=== PATIENT | male | born 1990 | race Caucasian/White ===

== ENCOUNTER 2021-05-01 03:37 | Emergency (ER) | payer OTHER ==
[2021-05-01 03:43] VITALS: TEMP 97.3
--- NOTE | 2021-05-01 03:59 | ED ---
Neck Injury/Pain HPI - General Chief Complaint: Neck Pain/Injury Stated Complaint: Back Pain Time Seen by Provider: 05/01/21 03:43 Mode of arrival: EMS Limitations: no limitations - History of Present Illness Initial Comments: This patient is a 30-year-old man who presents for evaluation of neck and upper back pain. He states he has been having episodes of this that he recalls dating back to the time he was an 7-year-old. Patient states that pain will flare in and go away over number days to weeks. He did not have any acute injury with this episode. He indicates the right paraspinal and right trapezius muscles as well as over the rhomboid muscles of the back. Pain is worse with position or movement. He is not having any weakness or numbness. MD Complaint: neck pain -: days(s) Place: home Radiation: right lateral, right shoulder Severity: moderate Quality: burning, aching Consistency: constant Improves With: none Worsens With: movement of neck Associated Symptoms: none Treatments Prior to Arrival: none - Related Data Previous Rx's Medication Instructions Recorded Ibuprofen [Motrin] 600 mg PO Q8HR PRN #20 tab 05/01/21 Methocarbamol [Robaxin-750] 750 mg PO TID PRN #30 tablet 05/01/21 Allergies Allergy/AdvReac Type Severity Reaction Status Date / Time No Known Allergies Allergy Verified 05/01/21 04:07 Review of Systems ROS Statement: Those systems with pertinent positive or pertinent negative responses have been documented in the HPI. ROS Other: All systems not noted in ROS Statement are negative. Constitutional: Denies: fever, chills, weakness Respiratory: Denies: cough, dyspnea Cardiovascular: Denies: chest pain Gastrointestinal: Denies: abdominal pain, vomiting, diarrhea Musculoskeletal: Reports: as per HPI Skin: Denies: rash, lesions Neurological: Denies: headache, weakness, numbness, paresthesias General Exam Limitations: no limitations General appearance: alert, in no apparent distress Head exam: Present: atraumatic, normocephalic Eye exam: Present: normal appearance. Absent: scleral icterus, conjunctival injection Neck exam: Present: normal inspection, tenderness (Right paraspinal muscles), full ROM. Absent: meningismus Respiratory exam: Present: normal lung sounds bilaterally. Absent: respiratory distress, wheezes, rales, rhonchi, stridor Cardiovascular Exam: Present: regular rate, normal rhythm, normal heart sounds. Absent: systolic murmur, diastolic murmur, rubs, gallop Back exam: Present: muscle spasm, paraspinal tenderness (Right), other (Right trapezius tenderness). Absent: vertebral tenderness Neurological exam: Present: alert. Absent: motor sensory deficit Skin exam: Present: warm, dry, intact, normal color. Absent: rash Course Vital Signs 05/01/21 05/01/21 03:39 04:47 Temperature 97.3 F L Pulse Rate 94 88 Respiratory 22 16 Rate Blood Pressure 124/86 121/81 O2 Sat by Pulse 98 98 Oximetry Disposition Clinical Impression: Acute torticollis Disposition: HOME SELF-CARE Condition: Good Instructions (If sedation given, give patient instructions): Cervical Strain (ED) Prescriptions: Ibuprofen [Motrin] 600 mg PO Q8HR PRN #20 tab PRN Reason: Pain Methocarbamol [Robaxin-750] 750 mg PO TID PRN #30 tablet PRN Reason: pain Is patient prescribed a controlled substance at d/c from ED?: No Referrals: None,Stated [Primary Care Provider] - 1-2 days
[2021-05-01] MEDS ORDERED: IBUPROFEN 600 MG TAB PO STA (04:07)
[2021-05-01 04:48] VITALS: BP 121/81; PULSE 88; RESP 16
== END 2021-05-01 04:47 | disposition home or self-care (01) ==
LOC: EC 03:37
DX: M43.6 Torticollis (principal)
CPT/HCPCS: 99283

== ENCOUNTER 2021-10-21 00:04 | Inpatient (IN) | payer MEDICAID, OTHER ==
--- NOTE | 2021-10-21 01:35 | ED ---
Psych HPI - General Source: patient, EMS, RN notes reviewed Mode of arrival: EMS Limitations: no limitations <Sanchez Laurent - Last Filed: 10/21/21 01:33> <Sanjiv Kimble - Last Filed: 10/21/21 08:25> - General Chief Complaint: Psychiatric Symptoms Stated Complaint: Mental health Time Seen by Provider: 10/21/21 00:13 - History of Present Illness Initial Comments: 30-year-old male presents emergency department for psychiatric evaluation. Patient states that he is depressed, suicidal. Patient is currently intoxic ated. Patient states he does drink on Regular basis. Patient has a history of drug abuse but states she has not used a 1 year. Patient has no specific physical complaints. Patient states she's been having suicidal ideation for a while having thoughts of shooting himself. (Sanchez Laurent) - Related Data Home Medications Medication Instructions Recorded Confirmed No Known Home Medications 10/21/21 10/21/21 Allergies Allergy/AdvReac Type Severity Reaction Status Date / Time No Known Allergies Allergy Verified 10/21/21 07:11 Review of Systems ROS Other: All systems not noted in ROS Statement are negative. <Sanchez Laurent - Last Filed: 10/21/21 01:33> ROS Other: All systems not noted in ROS Statement are negative. <Sanjiv Kimble - Last Filed: 10/21/21 08:25> ROS Statement: Those systems with pertinent positive or pertinent negative responses have been documented in the HPI. Past Medical History Past Medical History: No Reported History History of Any Multi-Drug Resistant Organisms: None Reported Past Surgical History: No Surgical Hx Reported Past Psychological History: ADD/ADHD, Anxiety, Bipolar, Depression Smoking Status: Current every day smoker Past Alcohol Use History: Daily Past Drug Use History: Cocaine, Heroin, Methamphetamine <Sanchez Laurent - Last Filed: 10/21/21 01:33> General Exam Limitations: no limitations General appearance: alert, in no apparent distress Head exam: Present: atraumatic, normocephalic, normal inspection Eye exam: Present: normal appearance, PERRL, EOMI. Absent: scleral icterus, conjunctival injection, periorbital swelling ENT exam: Present: normal exam, normal oropharynx, mucous membranes moist Neck exam: Present: normal inspection. Absent: tenderness, meningismus, lymphadenopathy Respiratory exam: Present: normal lung sounds bilaterally. Absent: respiratory distress, wheezes, rales, rhonchi, stridor Cardiovascular Exam: Present: regular rate, normal rhythm, normal heart sounds. Absent: systolic murmur, diastolic murmur, rubs, gallop, clicks Neurological exam: Present: alert, oriented X3 Psychiatric exam: Present: depressed Skin exam: Present: warm, dry, intact, normal color. Absent: rash <Sanchez Laurent - Last Filed: 10/21/21 01:33> Course Vital Signs 10/21/21 10/21/21 00:06 06:37 Temperature 98.2 F Pulse Rate 98 78 Respiratory 18 18 Rate Blood Pressure 135/90 108/69 O2 Sat by Pulse 98 98 Oximetry Medical Decision Making <Sanjiv Kimble - Last Filed: 10/21/21 08:25> - Medical Decision Making The patient was evaluated by the psychiatric service and will be admitted for inpatient evaluation and treatment (Sanjiv Kimble) - Lab Data Lab Results 10/21/21 Range/Units 00:56 Urine Opiates Screen Not Detected (NotDetected) Ur Oxycodone Screen Not Detected (NotDetected) Urine Methadone Screen Not Detected (NotDetected) Ur Propoxyphene Screen Not Detected (NotDetected) Ur Barbiturates Screen Not Detected (NotDetected) U Tricyclic Antidepress Not Detected (NotDetected) Ur Phencyclidine Scrn Not Detected (NotDetected) Ur Amphetamines Screen Not Detected (NotDetected) U Methamphetamines Scrn Not Detected (NotDetected) U Benzodiazepines Scrn Not Detected (NotDetected) Urine Cocaine Screen Not Detected (NotDetected) U Marijuana (THC) Screen Detected H (NotDetected) Disposition <Sanchez Laurent - Last Filed: 10/21/21 01:33> <Sanjiv Kimble - Last Filed: 10/21/21 08:25> Clinical Impression: Depression, Alcohol abuse Disposition: TRANSFER TO PSYCH HOSP/UNIT Condition: Fair Referrals: None,Stated [Primary Care Provider] - 1-2 days
[2021-10-21 02:30] LABS: Amphetamine Screen,Urine Not Detected (NotDetected); Barbiturate Screen,Urine Not Detected (NotDetected); Benzodiazepines Screen,Urine Not Detected (NotDetected); Cocaine Screen,Urine Not Detected (NotDetected); Methadone Screen, Urine Not Detected (NotDetected); Opiate Screen,Urine Not Detected (NotDetected); Oxycodone Screen, Urine Not Detected (NotDetected); Phencyclidine Screen,Urine Not Detected (NotDetected); Tricyclic Antidepressant,Urine Not Detected (NotDetected)
[2021-10-21 02:31] LABS: Urn Cannabinoid Scrn Detected (NotDetected)
[2021-10-21] MEDS ORDERED: LORazepam 1 MG TAB PO STA (08:24)
[2021-10-21] MEDS ORDERED: MAGNESIUM HYDROXIDE 2,400 MG/10 ML CUP PO PRN (10:57)
[2021-10-21] MEDS ORDERED: LORazepam 1 MG TAB PO PRN (10:57)
[2021-10-21] MEDS ORDERED: HALOPERIDOL LACTATE 5 MG/ML 1 ML VIAL IM PRN (11:02)
[2021-10-21] MEDS ORDERED: LORazepam 2 MG/ML INJ IM PRN (11:02)
[2021-10-21 12:53] LABS: Appearance,Urine Clear (Clear); Bilirubin,Urine Negative (Negative); Blood,Urine Negative (Negative); Color,Urine Light Yellow; Glucose,Urine (UA) Negative (Negative); Ketones,Urine Negative (Negative); Leukocyte Esterase,Urine Negative (Negative); Nitrite,Urine Negative (Negative); PH, Urine 5.5 (5.0-8.0); Protein,Urine Negative (Negative); Specific Gravity,Urine 1.005 (1.001-1.035); Urobilinogen,Urine <2.0 mg/dL (<2.0)
[2021-10-21] MEDS: ACETAMINOPHEN TAB 325 MG TAB PO PRN (13:07)
--- NOTE | 2021-10-21 13:53 | P.MDCNMH ---
History of Present Illness Chief Complaint: Depression This is a very pleasant 30-year-old male with history of depression, alcoholism, polysubstance abuse who was voluntarily admitted to mental stroke unit for stabilization of worsening depression and suicidal ideation Patient denies any active medical problems like asthma, diabetes, hypertension, cardiac or renal problems. She denies taking any medications at home. Patient reports drinking about 1/5 to half a gallon of this daily. Last drink was on the day of admission. He was admitted intoxicated with alcohol level is not obtained on admission. He is also admitting to smoking marijuana his urine drug screen was positive for marijuana. Patient states that he has history of severe alcohol withdrawal necessitating intensive care unit in the past. Patient states that he has history of alcoholic seizures none in the last few years. He is now feeling that he is likely but per him is tolerable. Patient has been treated with [facility] protocol with Librium. Review of Systems All systems: negative Past Medical History Past Medical History: No Reported History History of Any Multi-Drug Resistant Organisms: None Reported Past Surgical History: No Surgical Hx Reported Smoking Status: Current every day smoker Medications and Allergies Home Medications Medication Instructions Recorded Confirmed Type No Known Home Medications 10/21/21 10/21/21 History Allergies Allergy/AdvReac Type Severity Reaction Status Date / Time No Known Allergies Allergy Verified 10/21/21 07:11 Physical Exam Vitals: Vital Signs Temp Pulse Pulse Resp BP BP Pulse Ox 10/21/21 12:45 98.5 F 71 18 105/72 10/21/21 06:37 78 18 108/69 98 10/21/21 00:06 98.2 F 98 18 135/90 98 Intake and Output 10/20/21 10/21/21 10/21/21 22:59 06:59 14:59 Other: Weight 63.503 kg 69.4 kg Awake alert oriented 3 Head and neck: no facial asymmetry no neck masses no JVD, oropharyngeal mucosa is clear Lungs clear to auscultation Cardiovascular regular rhythm and rate S1-S2 Abdomen: Bowel sounds present soft nontender nondistended no flank tenderness Extremities no peripheral edema no swelling no cyanosis Neurological: Cranial nerves intact, no focal deficits no asterixis no tremor Cranial Nerve Examination - Cranial Nerves Cranial Nerve I- Olfactory: Intact Cranial Nerve II- Optic: Intact Cranial Nerve III- Oculomotor: Intact Cranial Nerve IV- Trochlear: Intact Cranial Nerve V- Trigeminal: Intact Cranial Nerve - Abducens: Intact Cranial Nerve VII- Facial: Intact Cranial Nerve VIII- Auditory: Intact Cranial Nerve IX- Glossopharyngeal: Intact Cranial Nerve X- Vagus: Intact Cranial Nerve XI- Accessory: Intact Cranial Nerve XII- Hypoglossal: Intact Results Labs: Abnormal Lab Results - Last 24 Hours (Table) 10/21/21 Range/Units 00:56 U Marijuana (THC) Screen Detected H (NotDetected) Assessment and Plan Plan: #Depression Presenting with worsening depression and suicidal ideation Currently mental health unit hospitalization Continue per psychiatry recommendations #Chronic alcoholism Drinks a fifth to half a gallon of whiskey daily Last drink on the admission Monitor for withdrawal's, CIWA protocol started by psychiatry Multivitamin, thiamine, folic acid Encourage oral hydration Check CMP #Cannabis abuse We'll continue to monitor this patient. He does have potential for several withdrawals. Plan of care discussed with nursing.
--- NOTE | 2021-10-21 14:22 | P.HP ---
Psychiatric H&P - . H&P Date: 10/21/21 History & Physical: Allergies Allergy/AdvReac Type Severity Reaction Status Date / Time No Known Allergies Allergy Verified 10/21/21 07:11 Vital Signs Temp 98.2 F 10/21/21 00:06 Pulse 78 10/21/21 06:37 Resp 18 10/21/21 06:37 BP 108/69 10/21/21 06:37 Pulse Ox 98 10/21/21 06:37 Intake & Output 10/20/21 10/21/21 10/21/21 18:59 06:59 18:59 Weight 63.503 kg Laboratory Last Values Urine Opiates Screen Not Detected (NotDetected) 10/21/21 00:56 Ur Oxycodone Screen Not Detected (NotDetected) 10/21/21 00:56 Urine Methadone Screen Not Detected (NotDetected) 10/21/21 00:56 Ur Propoxyphene Screen Not Detected (NotDetected) 10/21/21 00:56 Ur Barbiturates Screen Not Detected (NotDetected) 10/21/21 00:56 U Tricyclic Antidepress Not Detected (NotDetected) 10/21/21 00:56 Ur Phencyclidine Scrn Not Detected (NotDetected) 10/21/21 00:56 Ur Amphetamines Screen Not Detected (NotDetected) 10/21/21 00:56 U Methamphetamines Scrn Not Detected (NotDetected) 10/21/21 00:56 U Benzodiazepines Scrn Not Detected (NotDetected) 10/21/21 00:56 Urine Cocaine Screen Not Detected (NotDetected) 10/21/21 00:56 U Marijuana (THC) Screen Detected (NotDetected) H 10/21/21 00:56 Coronavirus (PCR) Not Detected (Not Detectd) 10/21/21 09:15 10/21/21 12:41 IDENTIFYING DATA: Patient is a 30 yo male, has 2 kids, currently lives [place] with a friend, is single, 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 HPI: Patient presented to the hospital this morning and according to ER reports she was complaining of depression and suicidal thoughts. Patient was apparently intoxicated from etoh. He had a plan to apparently shoot himself with a gun. He claims that he has been drinking heavily recently. He stated that he has been sober from other drug use in the past for about 1 year now. His UDS is positive for THC. Patient was seen today by medical writer and agreeable to speak in the office. Patient appeared to have a long villatoro, appeared to be unkempt. He had a constricted affect was fairly guarded during conversation poor eye contact. He had a soft tone of voice. He claims that he came to the hospital because he was having suicidal thoughts which were increasing in nature. He had thoughts of possibly shooting himself. He claims that he has been having these thoughts for the past 10 years however they have increased recently and claims that a big trigger for him was that he had to sign away his rights to his children. He states that his children are currently living with his mother. He claims that he has been feeling depressed and anxious about it. He claims that he's been drinking heavily approximately a half to 1 pint of whiskey a day. He claims that he does have a history of complicated withdrawals in the past. He states that he is having some tremors at this time and upset stomach. He states that his sleep has been poor for the past few nights sleeping approximately 4 hours a night. He states that his appetite has been up and down. He is denying any access to guns or weapons at this time.. Patient denies any suicidal or homicidal ideations intent or plan. At this time patient denies any auditory or visual hallucinations. Patient denies any flight of ideas racing thoughts and increased in goal directed behavior. Patient admits to using cigarettes daily, alcohol daily as noted above. He smokes marijuana daily. He denies any other recreational drug use. PAST PSYCHIATRIC HISTORY: Patient states that he has a history of depression and anxiety along with polysubstance abuse. He claims that he has been on several different medications in the past including trazodone and Remeron however cannot remember she states that he was previously hospitalized at [place] [facility] several years ago. Patient denies any psychiatric outpatient follow-up. He claims that he has had several suicide attempts in the past including attempting to hang himself and overdosing multiple times. PMH:denies ALLERGIES: as per EMR CHEMICAL DEPENDENCY HISTORY: as per HPI FAMILY PSYCHIATRIC/SUBSTANCE USE HISTORY: States that his brother and father both have some form of mental illness. SOCIAL HISTORY: Patient was born and raised in [place]. Patient claims that she was raised by his mother however was in foster care along with his siblings for 2 years and then returned back to his mother. He claims that he completed up to the 10th grade in school. He states that he has been arrested and in [facility] several times in the past including charges for a OWI, resisting arrest, trespassing. 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 He currently lives in a trailer with his friend. MENTAL STATUS EXAM: General Appearance: Patient appears to be thin, unkempt with a long villatoro, stated age is alert, directable, and attempts to cooperate. Patient appears to have poor hygiene and grooming. Behavior: Patient is seated without any agitated behavior. gaurded, constricted. Speech: Patient's speech is fluent and nonpressured. soft tone. concrete Mood/Affect: Patient reports their mood is depressed and anxious, affect is congruent and constricted. Suicidality/Homicidality: Patient denies having any homicidal ideation intent or plan. Denies any suicidal ideations intent or plan Perceptions: Patient denies any visual hallucinations and denies any auditory hallucinations Though content/process: poverty of content, gaurded, logical. Memory and concentration: AOX3, grossly intact for the purposes of this session. Can spell "WORLD" backwards Judgment and insight: poor STRENGTHS/WEAKNESSES: strength is that patient is resilient. Weakness is that patient has poor judgment and is impulsive INTELLECT: average IMPRESSIONS: Major depressive disorder, severe, recurrent without psychotic features Alcohol use disorder, currently in withdrawal nicotine dependence cannabis use disorder PLAN: -Patient is admitted under voluntary status to MHU for stabilization of psychiatric symptoms and safety. Patient has signed adult voluntary form and medication consent and is placed in patient's chart. -Medications : Will start patient on Librium 20 mg 4 times a day for alcohol withdrawal. Naltrexone 50 mg by mouth daily for alcohol cravings. Zoloft 25 mg daily for anxiety/mood. Remeron 15 mg daily at bedtime for insomnia/appetite/mood. -Ativan and Haldol PRN for agitation/aggression -Started thiamine, MVM for etoh use -WA protocol with Ativan PRN for ETOH withdrawal -Patient was counselled on substance abuse and desired to cut back on use -Patient was informed of the risks, benefits and side effects of the medication and patient verbally consented to taking the medications. Patient signed med consent form and was placed in chart. -Internal Medicine consult to perform medical evaluation and physical. -NRT - nicotine patch -SW on board for discharge planning. Encourage patient to participate in groups to work on coping skills. will speak with patient about possibly going to rehab. 10/21/21 14:12
[2021-10-21] MEDS: NALTREXONE HCL 50 MG TAB PO SCH (14:28)
[2021-10-21] MEDS: THIAMINE 100 MG TAB PO SCH (14:28)
[2021-10-21] MEDS: SERTRALINE 25 MG TAB PO SCH (14:28)
[2021-10-21] MEDS ORDERED: MIRTAZAPINE 15 MG TAB PO SCH (21:00)
[2021-10-22 07:14] LABS: Basophils # (A) 0.1 k/uL (0-0.2); Basophils % (A) 1 %; Eosinophils # (A) 0.3 k/uL (0-0.7); Eosinophils % (A) 4 %; HCT 51.5 % (39.0-53.0); HGB 17.5 gm/dL (13.0-17.5); Lymphocytes # (A) 2.1 k/uL (1.0-4.8); Lymphocytes % (A) 25 %; MCH 32.7 pg (25.0-35.0); MCHC 33.9 g/dL (31.0-37.0); MCV 96.6 fL (80.0-100.0); Mean Platelet Volume 7.4; Monocytes # (A) 0.5 k/uL (0-1.0); Monocytes % (A) 6 %; Neutrophils # (A) 5.1 k/uL (1.3-7.7); Neutrophils % (A) 62 %; Platelet Count 319 k/uL (150-450); RBC 5.33 m/uL (4.30-5.90); RDW 12.9 % (11.5-15.5); WBC 8.2 k/uL (3.8-10.6)
[2021-10-22 07:46] LABS: ALT 28 U/L (4-49); AST 30 U/L (17-59); African American GFR (CKD) >90 (>60 ml/min/1.73 sqM); Albumin 4.5 g/dL (3.5-5.0); Alkaline Phosphatase 86 U/L (38-126); Anion Gap 9 mmol/L; Blood Urea Nitrogen 15 mg/dL (9-20); Calcium 9.8 mg/dL (8.4-10.2); Carbon Dioxide 26 mmol/L (22-30); Chloride 106 mmol/L (98-107); Glucose 77 mg/dL (74-99); Non-African American GFR(CKD) >90 (>60 ml/min/1.73 sqM); Potassium 3.8 mmol/L (3.5-5.1); Sodium 141 mmol/L (137-145); Total Bilirubin 1.2 mg/dL (0.2-1.3)
[2021-10-22] MEDS: ACETAMINOPHEN TAB 325 MG TAB PO PRN (08:52)
[2021-10-22] MEDS: MAG HYDROX/AL HYDROX/SIMETH 30 ML CUP PO PRN ×2 (08:53→13:04)
[2021-10-22] MEDS: THIAMINE 100 MG TAB PO SCH (08:54)
[2021-10-22] MEDS: NALTREXONE HCL 50 MG TAB PO SCH (08:54)
[2021-10-22] MEDS: MULTIVITAMINS, THERA 1 EACH TAB PO SCH (08:54)
[2021-10-22] MEDS: SERTRALINE 25 MG TAB PO SCH (08:54)
[2021-10-22] MEDS: FOLIC ACID 1 MG TAB PO SCH (08:54)
--- NOTE | 2021-10-22 11:09 | P.PN ---
Progress Note - Text Progress Note Date: 10/22/21 Interval History: Patient was seen lying in his bed this morning and was directable and agreeable to speak with handbook writer in the office. Patient continues to appear to be constricted in his affect and has poor eye contact. He continues to have poor hygiene and grooming. He states that he is continuing to feel depressed and anxious today. He states that he is still going through withdrawals from alcohol and had minor tremors and an has an upset stomach. He states that he was able to sleep mildly better last night however was agreeable to have his Remeron increased and melatonin increased. She claims that he has not been going to groups and mainly isolating in his room. At this time patient denies any suicidal or homical ideations, intent or plan. Patient denies any auditory, visual hallucinations and denies any paranoia or delusions. Patient denies any side effects from the medications and has been compliant with meds. Mental Status Exam: General Appearance: Patient appears to be thin, unkempt with a long villatoro, stated age is alert, directable, and attempts to cooperate. Patient appears to have poor hygiene and grooming. Behavior: Patient is seated without any agitated behavior. gaurded, constricted. Speech: Patient's speech is fluent and nonpressured. soft tone. Mood/Affect: Patient reports their mood is depressed and anxious, affect is congruent and constricted. Suicidality/Homicidality: Patient denies having any homicidal ideation intent or plan. Denies any suicidal ideations intent or plan Perceptions: Patient denies any visual hallucinations and denies any auditory hallucinations Though content/process: poverty of content, logical. concrete Memory and concentration: AOX3, grossly intact for the purposes of this session. Judgment and insight: poor, improving midlly Assessment Major depressive disorder, severe, recurrent without psychotic features Alcohol use disorder, currently in withdrawal nicotine dependence cannabis use disorder Plan: -Patient continues to meet criteria for inpatient psychiatric admission for symptom stabilization and safety. Patient has signed [adult voluntary form and] [medication consent] and was placed in patient's chart. -Medications: []continue Librium 20 mg 4 times a day for alcohol withdrawal and will titrate down to 20 mg tid on monday. Naltrexone 50 mg by mouth daily for alcohol cravings. increase Zoloft 50 mg daily for anxiety/mood. increase Remeron 30 mg daily at bedtime for insomnia/appetite/mood. added melatonin 5 mg qhs for insomnia -When necessary Ativan and Haldol for agitation/aggression. -thiamine, MVM for etoh use -CIWA protocol with Ativan PRN for ETOH withdrawal -NRT - [nicotine patch] -SW on board for discharge planning. Encouraged the patient to participate in milieu. SW to give patient access number for rehab today,
[2021-10-22 12:25] LABS: Chol/HDL Ratio 5.07 Ratio
[2021-10-22] MEDS: MELATONIN 5 MG TABLET PO SCH (21:05)
[2021-10-22] MEDS: MIRTAZAPINE 15 MG TAB PO SCH (21:05)
[2021-10-23] MEDS: NALTREXONE HCL 50 MG TAB PO SCH (08:03)
[2021-10-23] MEDS: FOLIC ACID 1 MG TAB PO SCH (08:03)
[2021-10-23] MEDS: MULTIVITAMINS, THERA 1 EACH TAB PO SCH (08:03)
[2021-10-23] MEDS: SERTRALINE 50 MG TAB PO SCH (08:03)
[2021-10-23] MEDS: THIAMINE 100 MG TAB PO SCH (08:03)
--- NOTE | 2021-10-23 11:34 | P.PN ---
Subjective Progress Note Date: 10/23/21 Principal diagnosis: 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 Alcohol use disorder currently in withdrawal Nicotine use disorder unspecified Cannabis use disorder unspecified Subjective data: I feel dizzy whenever I get up so I'm staying in bed most of the time This usually feel dizzy when I get up first but then I'm okay patient states that the dizziness seems to go away for the rest of the day after only that initial symptoms Patient also admits feeling a motivated and not interested in any activities He currently denies any suicidal ideations or plans Patient reports that the current trigger for his depression has been the giving up the rights over his child Patient states that he also has been through severe stressful situation includi ng being homeless, heavy drug abuse and depression in the last year Patient states that he has been unable to have a proper follow-up due to difficulty in finding a psychiatrist Objective data: Remains unchanged from previous assessment Patient appears unkept good long villatoro Affect at this time is flat Responses were monotone with soft voice Thought processes are goal directed sequential and logical There is no evidence of any overt psychosis Patient does not exhibit any tremors or anxiety Formal and operational judgment and insight are concrete Problem solving ability remains impaired Assessment: 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 Alcohol use disorder currently in withdrawal Nicotine use disorder unspecified Cannabis use disorder unspecified Methamphetamine use disorder in remission Plan: Patient is currently going through alcohol detox and will monitor symptoms based on the [facility] protocol Patient however is complaining of some dizziness related to the medications and possibly could move down on the dosage more aggressively Continue supportive care and encouragement to participate in on the sanchez activities [facility] 10/23/21 Objective - Vital Signs Vital signs: Vital Signs Temp 98.5 F 10/21/21 12:45 Pulse 84 10/23/21 03:01 Resp 20 10/23/21 03:01 BP 116/67 10/23/21 08:05 Pulse Ox 96 10/23/21 03:01 - Labs CBC & Chem 7: 10/22/21 06:39 10/22/21 06:39 Labs: Abnormal Lab Results - Last 24 Hours (Table) 10/22/21 Range/Units 06:39 Triglycerides 164.00 H (0.00-149.00) mg/dL Cholesterol 219.00 H (0.00-200.00) mg/dL LDL Cholesterol, Calc 143.0 H (0.0-131.0) mg/dL
[2021-10-23] MEDS: MIRTAZAPINE 15 MG TAB PO SCH (21:07)
[2021-10-23] MEDS: MELATONIN 5 MG TABLET PO SCH (21:07)
[2021-10-24] MEDS: SERTRALINE 50 MG TAB PO SCH (08:54)
[2021-10-24] MEDS: MULTIVITAMINS, THERA 1 EACH TAB PO SCH (08:54)
[2021-10-24] MEDS: THIAMINE 100 MG TAB PO SCH (08:54)
[2021-10-24] MEDS: FOLIC ACID 1 MG TAB PO SCH (08:54)
[2021-10-24] MEDS: NALTREXONE HCL 50 MG TAB PO SCH (08:56)
--- NOTE | 2021-10-24 10:14 | P.PN ---
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 Alcohol use disorder currently in withdrawal Nicotine use disorder unspecified Cannabis use disorder unspecified Subjective data: I feel dizzy whenever I get up but that seems to go away once I am up for a little while states that the dizziness seems to go away for the rest of the day after only that initial symptoms He states that he feels about the same Patient states that he has support when he leaves and that he has a friend who is a interior design project manager for another friend and that she is allowing him to stay with him during this difficult time until he gets rehabilitated He currently denies any suicidal ideations or plans Patient reports that the current trigger for his depression has been the giving up the rights over his child Patient states that he also has been through severe stressful situation including being homeless, heavy drug abuse and depression in the last year Objective data: Remains unchanged from previous assessment Patient appears unkept good long villatoro Affect at this time is flat Responses were monotone with soft voice Thought processes are goal directed sequential and logical There is no evidence of any overt psychosis Patient does not exhibit any tremors or anxiety Formal and operational judgment and insight are concrete Problem solving ability seems to be improving with patient being more forward thinking Assessment: 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 Alcohol use disorder currently in withdrawal Nicotine use disorder unspecified Cannabis use disorder unspecified Methamphetamine use disorder in remission Plan: She has complaints appear to be more related to orthostatic hypotension but otherwise seems to be improving Patient is currently going through alcohol detox and will monitor symptoms based on the CIWA protocol Patient however is complaining of some dizziness related to the medications and possibly could move down on the dosage more aggressively Continue supportive care and encouragement to participate in on the [facility] 10/23/21 Objective - Vital Signs Vital signs: Vital Signs Temp 97.8 F 10/24/21 07:13 Pulse 64 10/24/21 07:13 Resp 14 10/24/21 07:13 BP 108/61 10/24/21 07:13 Pulse Ox 96 10/23/21 03:01 Intake & Output 10/23/21 10/24/21 10/24/21 18:59 06:59 18:59 Weight 69 kg - Labs CBC & Chem 7: 10/22/21 06:39 10/22/21 06:39
[2021-10-24] MEDS: MELATONIN 5 MG TABLET PO SCH (21:12)
[2021-10-24] MEDS: MIRTAZAPINE 15 MG TAB PO SCH (21:12)
[2021-10-25 07:00] VITALS: RESP 18; TEMP 97.9
[2021-10-25] MEDS: SERTRALINE 50 MG TAB PO SCH (09:12)
[2021-10-25] MEDS: MULTIVITAMINS, THERA 1 EACH TAB PO SCH (09:12)
[2021-10-25] MEDS: FOLIC ACID 1 MG TAB PO SCH (09:12)
[2021-10-25] MEDS: THIAMINE 100 MG TAB PO SCH (09:12)
[2021-10-25] MEDS: NALTREXONE HCL 50 MG TAB PO SCH (09:12)
[2021-10-25] MEDS ORDERED: SERTRALINE 50 MG TAB PO STA (10:05)
--- NOTE | 2021-10-25 11:38 | P.PN ---
Progress Note - Text Progress Note Date: 10/25/21 Interval History: Patient was seen sitting in an group this morning and was directable and agree able to speak with functional tester typewriters in the office. Patient appeared to be visibly upset this morning and was crying. He states that he has been "going through a lot" and shared a lot of information with others during group today which made him more tearful. He states that overall he is feeling mild improvement however continues to endorse poor sleep at night. He claims that he is showering daily and has an improving appetite. He continues to endorse depression and anxiety. He does appear to be more future oriented today and was not speaking about suicide however was speaking about the suicidal thoughts and how severe they were before coming into the hospital. He states that he had a fair weekend with no complaints. At this time patient denies any suicidal or homical ideations, intent or plan. Patient denies any auditory, visual hallucinations and denies any paranoia or delusions. Patient denies any side effects from the medications and has been compliant with meds. Mental Status Exam: General Appearance: Patient appears to be thin, unkempt with a long villatoro, stated age is alert, directable, and attempts to cooperate. Patient appears to have improving hygiene and grooming. Behavior: Patient is seated without any agitated behavior. Tearful. Cooperative. Speech: Patient's speech is fluent and nonpressured. soft tone. Mood/Affect: Patient reports their mood is depressed and anxious, improving midly, affect is congruent Suicidality/Homicidality: Patient denies having any homicidal ideation intent or plan. Denies any suicidal ideations intent or plan Perceptions: Patient denies any visual hallucinations and denies any auditory hallucinations Though content/process: logical. concrete, depressive thoughts. Memory and concentration: AOX3, grossly intact for the purposes of this session. Judgment and insight: poor, improving midlly Assessment Major depressive disorder, severe, recurrent without psychotic features Alcohol use disorder, currently in withdrawal nicotine dependence cannabis use disorder Plan: -Patient continues to meet criteria for inpatient psychiatric admission for symptom stabilization and safety. Patient has signed [adult voluntary form and] [medication consent] and was placed in patient's chart. -Medications: decrease Librium 10 mg 3 times a day for alcohol withdrawal and will titrate down. Naltrexone 50 mg by mouth daily for alcohol cravings. increase Zoloft 100 mg daily for anxiety/mood. increase Remeron 45 mg daily at bedtime for insomnia/appetite/mood. increase melatonin 10 mg qhs for insomnia -When necessary Ativan and Haldol for agitation/aggression. -thiamine, MVM for etoh use -CIWA protocol with Ativan PRN for ETOH withdrawal -NRT - [nicotine patch] -SW on board for discharge planning. Encouraged the patient to participate in milieu. Patient claims that he wants the information to go to rehab but will likely go after nv as he wants to spend the time with his kids. likely discharge tomorrow or monday.
[2021-10-25] MEDS ORDERED: MELATONIN 5 MG TABLET PO SCH (21:00)
[2021-10-25] MEDS ORDERED: MIRTAZAPINE 15 MG TAB PO SCH (21:00)
[2021-10-26] MEDS: NALTREXONE HCL 50 MG TAB PO SCH (08:35)
[2021-10-26] MEDS: FOLIC ACID 1 MG TAB PO SCH (08:35)
[2021-10-26] MEDS: MULTIVITAMINS, THERA 1 EACH TAB PO SCH (08:35)
[2021-10-26] MEDS: THIAMINE 100 MG TAB PO SCH (08:35)
[2021-10-26 08:36] VITALS: BP 129/81; PULSE 80
[2021-10-26] MEDS ORDERED: SERTRALINE 100 MG TAB PO SCH (09:00)
--- NOTE | 2021-10-26 10:39 | P.DS ---
Providers Date of admission: 10/21/21 10:53 Expected date of discharge: 10/26/21 Attending physician: David Christiansen MD Consults: 10/21/21 10:57 Consult Physician Routine Consulting Provider: Briseida Physician Consult Reason/Comments: Medical Management Do you want consulting provider notified?: Yes Primary care physician: Stated None - Discharge Diagnosis(es) (1) Major depressive disorder, recurrent severe without psychotic features Current Visit: Yes Status: Acute Priority: High (2) Alcohol use disorder Current Visit: Yes Status: Acute Priority: High (3) Cannabis use disorder, mild, abuse Current Visit: Yes Status: Acute Priority: Medium (4) Nicotine dependence Current Visit: Yes Status: Acute Priority: Low Hospital Course: Admission HPI: Admission note was completed by financial underwriter "Patient is a 30 yo male, has 2 kids, currently lives at a [facility] with a friend, is single, works as a cook at a [employer]. Patient presented to the hospital this morning and according to ER reports she was complaining of depression and suicidal thoughts. Patient was apparently intoxicated from etoh. He had a plan to apparently shoot himself with a gun. He claims that he has been drinking heavily recently. He stated that he has been sober from other drug use in the past for about 1 year now. His UDS is positive for THC. Patient was seen today by financial underwriter and agreeable to speak in the office. Patient appeared to have a long villatoro, appeared to be unkempt. He had a constricted affect was fairly guarded during conversation poor eye contact. He had a soft tone of voice. He claims that he came to the hospital because he was having suicidal thoughts which were increasing in nature. He had thoughts of possibly shooting himself. He claims that he has been having these thoughts for the past 10 years however they have increased recently and claims that a big trigger for him was that he had to sign away his rights to his children. He states that his children are currently living with his mother. He claims that he has been feeling depressed and anxious about it. He claims that he's been drinking heavily approximately a half to 1 pint of whiskey a day. He claims that he does have a history of complicated withdrawals in the past. He states that he is having some tremors at this time and upset stomach. He states that his sleep has been poor for the past few nights sleeping approximately 4 hours a night. He states that his appetite has been up and down. He is denying any access to guns or weapons at this time. Patient denies any suicidal or homicidal ideations intent or plan. At this time patient denies any auditory or visual hallucinations. Patient denies any flight of ideas racing thoughts and increased in goal directed behavior. Patient admits to using cigarettes daily, alcohol daily as noted above. He smokes marijuana daily. He denies any other recreational drug use." Hospital course: Upon admission to the unit patient was directable and agreeable to commence treatment and signed adult voluntary form . Patient got along well with other patients on the unit and followed unit protocol. Patient was compliant with the medications and denied any side effects throughout hospital course. Patient was started on Librium taper which was scheduled for alcohol withdrawal symptoms and also CIWA protocol with when necessary Ativan. Patient was also started on naltrexone 50 mg by mouth daily for alcohol cravings. He was started on Zoloft and increased to a dose of 100 mg daily for mood/anxiety. Patient was also started on Remeron and increased to a dose of 45 mg daily at bedtime for insomnia/appetite/mood. He was started on melatonin and titrate up the dose of 10 mg daily at bedtime for insomnia. Patient spoke of his stressors and engaged in therapy both group and individual. Patient was also seen by medical team for history and physical exam. Throughout the course of the hospitalization patient gradually improved with regards to mood, anxiety, sleep and became more future oriented with improved insight and judgment. On the day of discharge patient denied any suicidal or homicidal ideations intent or plan denied any auditory or visual hallucinations. Patient endorsed wanting to live for his kids and his future. The patient denied any access to guns or weapons. Patient denied any paranoia and did not endorse any delusions. Patient does have a significant history of substance abuse and was counseled on abstaining from all substances including alcohol and marijuana. Patient was offered inpatient rehab referral however patient states that he would like to spend the holidays with his children at home and then attempt to schedule rehab after [place]. Patient was also counseled on the medications and need for regular compliance and was encouraged to follow-up with their outpatient appointment for mental health and also for primary care. Mental status exam: General Appearance: Patient appears to be thin, long villatoro, glasses, stated age is alert, pleasant, and cooperative. Patient is in no acute distress and has improved hygiene and grooming Behavior: Patient is calmly seated without any agitated behavior. Speech: Patient's speech is fluent and nonpressured. Mood/Affect: Patient reports their mood is "better", affect is congruent and euthymic. Suicidality/Homicidality: Patient denies having any suicidal or homicidal ideation intent or plan. Perceptions: Patient denies any auditory or visual hallucinations. Though content/process: There is no evidence of any delusional thought content and thought process is linear and goal-directed. more future oriented Memory and concentration: AOX3, grossly intact for the purposes of this session. Can spell "WORLD" backwards correctly. Judgment and insight: improved with guarded prognosis Impression: Major depressive disorder, recurrent, severe without psychotic features Alcohol use disorder Cannabis use disorder mild Nicotine dependence Plan: -Continue with discharge today as patient has improved and stabilized psychiatrically and is not currently an imminent threat to himself and/or others. Patient will remain at chronically elevated risk for harm to self and/or others due to his substance abuse. -Continue medications: Librium was discontinued prior to discharge. Continue naltrexone 50 mg by mouth daily for alcohol cravings, Zoloft 100 mg daily for anxiety/mood, Remeron 45 mg daily at bedtime for insomnia/appetite/mood, melatonin 10 mg daily at bedtime for insomnia. -Patient was counseled on the need for medication compliance and appropriate follow-up at mental health and also primary care for medical issues. Patient verbalized understanding and agreed. -Social work to help arrange for discharge today and will provide patient with access number for rehab as patient would like to do this after the holidays. Social work also to arrange for patients follow up appointments with [facility] for psychiatric care along with follow up with primary care provider. -Patient counseled on abstaining from recreational drugs and marijuana and alcohol. Was informed/educated on the adverse effects on their physical and mental health. Patient verbally agreed and understood. -Patient was instructed to return to the hospital or seek immediate medical care if their psychiatric or medical symptoms do worsen or reoccur. Allergies Allergy/AdvReac Type Severity Reaction Status Date / Time No Known Allergies Allergy Verified 10/21/21 07:11 Laboratory Results WBC 8.2 k/uL (3.8-10.6) 10/22/21 06:39 RBC 5.33 m/uL (4.30-5.90) 10/22/21 06:39 Hgb 17.5 gm/dL (13.0-17.5) 10/22/21 06:39 Hct 51.5 % (39.0-53.0) 10/22/21 06:39 MCV 96.6 fL (80.0-100.0) 10/22/21 06:39 MCH 32.7 pg (25.0-35.0) 10/22/21 06:39 MCHC 33.9 g/dL (31.0-37.0) 10/22/21 06:39 RDW 12.9 % (11.5-15.5) 10/22/21 06:39 Plt Count 319 k/uL (150-450) 10/22/21 06:39 MPV 7.4 10/22/21 06:39 Neutrophils % 62 % 10/22/21 06:39 Lymphocytes % 25 % 10/22/21 06:39 Monocytes % 6 % 10/22/21 06:39 Eosinophils % 4 % 10/22/21 06:39 Basophils % 1 % 10/22/21 06:39 Neutrophils # 5.1 k/uL (1.3-7.7) 10/22/21 06:39 Lymphocytes # 2.1 k/uL (1.0-4.8) 10/22/21 06:39 Monocytes # 0.5 k/uL (0-1.0) 10/22/21 06:39 Eosinophils # 0.3 k/uL (0-0.7) 10/22/21 06:39 Basophils # 0.1 k/uL (0-0.2) 10/22/21 06:39 Sodium 141 mmol/L (137-145) 10/22/21 06:39 Potassium 3.8 mmol/L (3.5-5.1) 10/22/21 06:39 Chloride 106 mmol/L (98-107) 10/22/21 06:39 Carbon Dioxide 26 mmol/L (22-30) 10/22/21 06:39 Anion Gap 9 mmol/L 10/22/21 06:39 BUN 15 mg/dL (9-20) 10/22/21 06:39 Creatinine 0.83 mg/dL (0.66-1.25) 10/22/21 06:39 Est GFR (CKD-EPI)AfAm >90 (>60 ml/min/1.73 sqM) 10/22/21 06:39 Est GFR (CKD-EPI)NonAf >90 (>60 ml/min/1.73 sqM) 10/22/21 06:39 Glucose 77 mg/dL (74-99) 10/22/21 06:[address] Glu mg/dL 97 10/22/21 06:39 Hemoglobin A1c 5.0 % (4.0-6.0) 10/22/21 06:39 Calcium 9.8 mg/dL (8.4-10.2) 10/22/21 06:39 Total Bilirubin 1.2 mg/dL (0.2-1.3) 10/22/21 06:39 AST 30 U/L (17-59) 10/22/21 06:39 ALT 28 U/L (4-49) 10/22/21 06:39 Alkaline Phosphatase 86 U/L (38-126) 10/22/21 06:39 Total Protein 8.0 g/dL (6.3-8.2) 10/22/21 06:39 Albumin 4.5 g/dL (3.5-5.0) 10/22/21 06:39 Triglycerides 164.00 mg/dL (0.00-149.00) H 10/22/21 06:39 Cholesterol 219.00 mg/dL (0.00-200.00) H 10/22/21 06:39 LDL Cholesterol, Calc 143.0 mg/dL (0.0-131.0) H 10/22/21 06:39 VLDL Cholesterol, Calc 32.80 mg/dL (5.00-40.00) 10/22/21 06:39 HDL Cholesterol 43.20 mg/dL (40.00-60.00) 10/22/21 06:39 Cholesterol/HDL Ratio 5.07 Ratio 10/22/21 06:39 TSH 0.937 mIU/L (0.465-4.680) 10/22/21 06:39 Urine Color Light Yellow 10/21/21 00:56 Urine Appearance Clear (Clear) 10/21/21 00:56 Urine pH 5.5 (5.0-8.0) 10/21/21 00:56 Ur Specific [place] 1.005 (1.001-1.035) 10/21/21 00:56 Urine Protein Negative (Negative) 10/21/21 00:56 Urine Glucose (UA) Negative (Negative) 10/21/21 00:56 Urine Ketones Negative (Negative) 10/21/21 00:56 Urine Blood Negative (Negative) 10/21/21 00:56 Urine Nitrite Negative (Negative) 10/21/21 00:56 Urine Bilirubin Negative (Negative) 10/21/21 00:56 Urine Urobilinogen <2.0 mg/dL (<2.0) 10/21/21 00:56 Ur Leukocyte Esterase Negative (Negative) 10/21/21 00:56 Urine Opiates Screen Not Detected (NotDetected) 10/21/21 00:56 Ur Oxycodone Screen Not Detected (NotDetected) 10/21/21 00:56 Urine Methadone Screen Not Detected (NotDetected) 10/21/21 00:56 Ur Propoxyphene Screen Not Detected (NotDetected) 10/21/21 00:56 Ur Barbiturates Screen Not Detected (NotDetected) 10/21/21 00:56 U Tricyclic Antidepress Not Detected (NotDetected) 10/21/21 00:56 Ur Phencyclidine Scrn Not Detected (NotDetected) 10/21/21 00:56 Ur Amphetamines Screen Not Detected (NotDetected) 10/21/21 00:56 U Methamphetamines Scrn Not Detected (NotDetected) 10/21/21 00:56 U Benzodiazepines Scrn Not Detected (NotDetected) 10/21/21 00:56 Urine Cocaine Screen Not Detected (NotDetected) 10/21/21 00:56 U Marijuana (THC) Screen Detected (NotDetected) H 10/21/21 00:56 Coronavirus (PCR) Not Detected (Not Detectd) 10/21/21 09:15 Vital Signs Temp 97.9 F 10/25/21 06:59 Pulse 80 10/26/21 08:36 Resp 18 10/25/21 06:59 BP 129/81 10/26/21 08:36 Pulse Ox 98 10/25/21 06:59 Patient Condition at Discharge: Stable Plan - Discharge Summary Discharge Rx Participant: No New Discharge Prescriptions: New Folic Acid 1 mg PO DAILY 30 Days tab Multivitamins, Thera [Multivitamin (formulary)] 1 each PO DAILY 30 Days tab Thiamine [Vitamin B-1] 100 mg PO DAILY 30 Days tab Melatonin 10 mg PO HS 30 Days tablet Mirtazapine [Remeron] 45 mg PO HS 30 Days tab Naltrexone HCl [Revia] 50 mg PO DAILY 30 Days tab Acetaminophen Tab [Tylenol] 650 mg PO Q4HR PRN tab PRN Reason: Pain/Discomfort Sertraline [Zoloft] 100 mg PO DAILY 30 Days tab Discharge Medication List Acetaminophen Tab [Tylenol] 650 mg PO Q4HR PRN tab 10/26/21 [Rx] Folic Acid 1 mg PO DAILY 30 Days tab 10/26/21 [Rx] Melatonin 10 mg PO HS 30 Days tablet 10/26/21 [Rx] Mirtazapine [Remeron] 45 mg PO HS 30 Days tab 10/26/21 [Rx] Multivitamins, Thera [Multivitamin (formulary)] 1 each PO DAILY 30 Days tab 10/26/21 [Rx] Naltrexone HCl [Revia] 50 mg PO DAILY 30 Days tab 10/26/21 [Rx] Sertraline [Zoloft] 100 mg PO DAILY 30 Days tab 10/26/21 [Rx] Thiamine [Vitamin B-1] 100 mg PO DAILY 30 Days tab 10/26/21 [Rx] Follow up Appointment(s)/Referral(s): [facility] [Outside] - 11/02/21 9:00 am ([place] office: [address] [id number] [address]) None,Stated [Primary Care Provider] - 1-2 days Patient Instructions/Handouts: How to Stop Smoking (DC), Depression (DC), Abuse of Alcohol (DC) Activity/Diet/Wound Care/Special Instructions: Activity and diet as tolerated. Avoid the use of street drugs and alcohol. Take all medications as prescribed. When you are in need of refills on your medications please contact your medical provider and/or outpatient psychiatrist to have this done. Please go to scheduled outpatient appointment for aftercare treatment. If symptoms return or become worse, call the crisis line at and/or go to the nearest emergency room for evaluation Discharge Disposition: HOME SELF-CARE
== END 2021-10-26 12:05 | disposition home or self-care (01) | DRG 885 ==
LOC: EC 00:04 → 3MHU 10:53
PROVIDERS: ADMIT Psychiatry & Neurology Psychiatry; ATTEND Psychiatry & Neurology Psychiatry
DX: F33.2 Major depressive disorder, recurrent severe without psychotic features (principal); R45.851 Suicidal ideations; F10.239 Alcohol dependence with withdrawal, unspecified; F10.229 Alcohol dependence with intoxication, unspecified; F15.11 Other stimulant abuse, in remission; Z20.822 Contact with and (suspected) exposure to COVID-19; F41.9 Anxiety disorder, unspecified; F12.10 Cannabis abuse, uncomplicated; F90.9 Attention-deficit hyperactivity disorder, unspecified type; G47.00 Insomnia, unspecified; Z59.00 Homelessness unspecified; F17.210 Nicotine dependence, cigarettes, uncomplicated; Z71.6 Tobacco abuse counseling; Z71.41 Alcohol abuse counseling and surveillance of alcoholic; Z71.51 Drug abuse counseling and surveillance of drug abuser
CPT/HCPCS: 80053; 80061; 80306; 81003; 82075; 83036; 84443; 85025; 87635; 99285

== ENCOUNTER 2022-09-05 00:17 | Inpatient (IN) | payer MEDICAID, OTHER ==
--- NOTE | 2022-09-05 00:35 | ED ---
Psych HPI - General Chief Complaint: Psychiatric Symptoms Stated Complaint: Mental Health Time Seen by Provider: 09/05/22 00:23 Source: patient, RN notes reviewed, old records reviewed Mode of arrival: EMS - History of Present Illness Initial Comments: This is a 31-year-old male presented with suicidal thoughts and suicidal ideation. Patient presents with significant alcohol intoxication. Patient is a poor historian mainly sleeping to history of present illness refusing to answer questions age and does have a strong history of drug abuse polysubstance abuse MD Complaint: suicidal ideation, other (etoh) -: unknown Associated Psychiatric Symptoms: depression, suicidal ideation History of same: Yes Quality: constant Improves With: none Worsens With: none Context: recent alcohol abuse Treatments Prior to Arrival: placed on mental health hold If Self Harm: admits thoughts of self harm - Related Data Home Medications Medication Instructions Recorded Confirmed No Known Home Medications 09/05/22 09/05/22 Allergies Allergy/AdvReac Type Severity Reaction Status Date / Time No Known Allergies Allergy Verified 09/05/22 10:56 Review of Systems ROS Statement: Those systems with pertinent positive or pertinent negative responses have been documented in the HPI. ROS Other: All systems not noted in ROS Statement are negative. Past Medical History Past Medical History: No Reported History History of Any Multi-Drug Resistant Organisms: None Reported Past Surgical History: No Surgical Hx Reported Past Psychological History: ADD/ADHD, Anxiety, Bipolar, Depression, PTSD Smoking Status: Current every day smoker Past Drug Use History: Cocaine, Heroin, Marijuana, Methamphetamine - Past Family History Father Family Medical History: Hyperlipidemia General Exam Limitations: no limitations General appearance: appears intoxicated Head exam: Present: atraumatic, normocephalic, normal inspection Eye exam: Present: normal appearance, PERRL, EOMI. Absent: scleral icterus, conjunctival injection, periorbital swelling ENT exam: Present: normal exam, mucous membranes moist Neck exam: Present: normal inspection. Absent: tenderness, meningismus, lymphadenopathy Respiratory exam: Present: normal lung sounds bilaterally. Absent: respiratory distress, wheezes, rales, rhonchi, stridor Cardiovascular Exam: Present: regular rate, normal rhythm, normal heart sounds. Absent: systolic murmur, diastolic murmur, rubs, gallop, clicks GI/Abdominal exam: Present: soft, normal bowel sounds. Absent: distended, tenderness, guarding, rebound, rigid Extremities exam: Present: normal inspection, full ROM, normal capillary refill. Absent: tenderness, pedal edema, joint swelling, calf tenderness Back exam: Present: normal inspection Neurological exam: Present: alert, oriented X3, CN II-XII intact Psychiatric exam: Present: normal affect, normal mood Skin exam: Present: warm, dry, intact, normal color. Absent: rash Course Vital Signs 09/05/22 09/05/22 00:21 09:21 Temperature 98.2 F Pulse Rate 98 85 Respiratory 20 17 Rate Blood Pressure 142/81 117/75 O2 Sat by Pulse 99 98 Oximetry - Reevaluation(s) Reevaluation #1: 09/05/22 05:36 Medical records reviewed Reevaluation #2: 09/05/22 05:36 Medically clear for psychiatric evaluation Medical Decision Making - Medical Decision Making 31-year-old male Will be admitted for psychiatric evaluation and treatment - Lab Data Result diagrams: 09/06/22 09:30 09/06/22 09:30 Lab Results 09/05/22 Range/Units 09:22 Coronavirus (PCR) Not Detected (Not Detectd) Disposition Clinical Impression: Depression, Alcohol use disorder, Major depressive disorder, recurrent severe without psychotic features, Suicidal ideation Disposition: TRANSFER TO PSYCH HOSP/UNIT Condition: Fair Is patient prescribed a controlled substance at d/c from ED?: No
[2022-09-05] MEDS ORDERED: LORazepam 1 MG TAB PO STA (09:11)
[2022-09-05] MEDS ORDERED: MAGNESIUM HYDROXIDE 2,400 MG/10 ML CUP PO PRN (10:06)
[2022-09-05] MEDS ORDERED: MAG HYDROX/AL HYDROX/SIMETH 30 ML CUP PO PRN (10:06)
[2022-09-05] MEDS ORDERED: ACETAMINOPHEN TAB 325 MG TAB PO PRN (10:06)
[2022-09-05] MEDS: chlordiazePOXIDE 25 MG CAP PO SCH ×3 (14:33→20:57)
[2022-09-05] MEDS: NICOTINE 14MG/24HR PATCH TRANSDERM SCH (14:34)
[2022-09-05] MEDS: LORazepam 1 MG TAB PO PRN (20:57)
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
[2022-09-06] MEDS: FOLIC ACID 1 MG TAB PO SCH (08:39)
[2022-09-06] MEDS: MULTIVITAMINS, THERA 1 EACH TAB PO SCH (08:39)
[2022-09-06] MEDS: chlordiazePOXIDE 25 MG CAP PO SCH ×4 (08:39→21:21)
[2022-09-06] MEDS: NICOTINE 14MG/24HR PATCH TRANSDERM SCH (08:39)
[2022-09-06] MEDS: THIAMINE 100 MG TAB PO SCH (08:40)
[2022-09-06] MEDS: CLINDAMYCIN 150 MG CAP PO SCH ×4 (08:40→21:22)
[2022-09-06 10:27] LABS: Basophils % (A) 0 %; Eosinophils # (A) 0.3 k/uL (0-0.7); Eosinophils % (A) 3 %; HCT 44.8 % (39.0-53.0); HGB 15.6 gm/dL (13.0-17.5); Lymphocytes % (A) 22 %; MCH 31.9 pg (25.0-35.0); MCHC 34.8 g/dL (31.0-37.0); MCV 91.7 fL (80.0-100.0); Mean Platelet Volume 7.6; Monocytes # (A) 0.5 k/uL (0-1.0); Monocytes % (A) 6 %; Neutrophils # (A) 5.8 k/uL (1.3-7.7); Neutrophils % (A) 66 %; Platelet Count 360 k/uL (150-450); RBC 4.88 m/uL (4.30-5.90); RDW 12.3 % (11.5-15.5); WBC 8.8 k/uL (3.8-10.6)
[2022-09-06 10:46] LABS: ALT 33 U/L (4-49); AST 32 U/L (17-59); African American GFR (CKD) >90 (>60 ml/min/1.73 sqM); Albumin 4.4 g/dL (3.5-5.0); Alkaline Phosphatase 73 U/L (38-126); Anion Gap 10 mmol/L; Blood Urea Nitrogen 12 mg/dL (9-20); Calcium 9.1 mg/dL (8.4-10.2); Carbon Dioxide 29 mmol/L (22-30); Chloride 100 mmol/L (98-107); Glucose 106 mg/dL (74-99); Non-African American GFR(CKD) >90 (>60 ml/min/1.73 sqM); Potassium 4.5 mmol/L (3.5-5.1); Sodium 139 mmol/L (137-145); Total Bilirubin 0.6 mg/dL (0.2-1.3); Total Protein 7.4 g/dL (6.3-8.2)
[2022-09-06] MEDS ORDERED: HYDROCORTISONE 1% CREAM 30 GM TUBE TOPICAL PRN (14:26)
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
[2022-09-06] MEDS: SERTRALINE 50 MG TAB PO SCH (15:27)
[2022-09-06 15:36] LABS: Chol/HDL Ratio 5.05 Ratio
[2022-09-06] MEDS ORDERED: MIRTAZAPINE 15 MG TAB PO SCH (21:00)
[2022-09-07] MEDS: MULTIVITAMINS, THERA 1 EACH TAB PO SCH (09:02)
[2022-09-07] MEDS: NICOTINE 14MG/24HR PATCH TRANSDERM SCH (09:02)
[2022-09-07] MEDS: FOLIC ACID 1 MG TAB PO SCH (09:02)
[2022-09-07] MEDS: chlordiazePOXIDE 25 MG CAP PO SCH ×3 (09:02→20:28)
[2022-09-07] MEDS: THIAMINE 100 MG TAB PO SCH (09:02)
[2022-09-07] MEDS: SERTRALINE 50 MG TAB PO SCH (09:02)
[2022-09-07] MEDS: CLINDAMYCIN 150 MG CAP PO SCH ×4 (09:02→20:27)
--- NOTE | 2022-09-07 10:05 | P.PN ---
Progress Note - Text Progress Note Date: 09/07/22 Interval History: Patient was seen [wandering the hallways] and was directable and agreeable to speak with leader writer in the office. Patient claims that he feels a bit better today however continues to remain anxious. He states that there has been "a lot of drama" on the unit between other patients. He states that he is feeling on edge being on the unit. He claims that his withdrawal symptoms are a bit better however continues to state that he feels "hot". He claims that he has been trying to go to groups and putting an effort into his treatment. He states that he has been taking his medications. States that he did have mild diarrhea yesterday however that improved today. Claims that he was able to sleep about 3 hours last night was agreeable to have melatonin agitated and. At this time patient denies any suicidal or homical ideations, intent or plan. Patient denies any auditory, visual hallucinations and denies any paranoia or delusions. Patient denies any side effects from the medications and has been compliant with meds. Mental Status Exam: General Appearance: Patient appears to be thin, unkempt with a long villatoro, stated age is alert, directable, and attempts to cooperate. Patient appears to have improving hygiene and grooming. Behavior: Patient is seated without any agitated behavior. gaurded, constricted. Speech: Patient's speech is fluent and nonpressured. concrete Mood/Affect: Patient reports their mood is anxious, affect is congruent and constricted. Suicidality/Homicidality: Patient denies having any homicidal ideation intent or plan. Denies any suicidal ideations intent or plan Perceptions: Patient denies any visual hallucinations and denies any auditory hallucinations Though content/process: poverty of content, gaurded, logical, improving mildly Memory and concentration: AOX3, grossly intact for the purposes of this session. Judgment and insight: poor, improving mildly IMPRESSIONS: Major depressive disorder, severe, recurrent without psychotic features Alcohol use disorder, currently in withdrawal nicotine dependence cannabis use disorder Plan: -Patient continues to meet criteria for inpatient psychiatric admission for symptom stabilization and safety. Patient has signed [adult voluntary form and] [medication consent] and was placed in patient's chart. -Medications: Decrease Librium to 25 mg 3 times a day for alcohol withdrawal. Continue Zoloft 50 mg daily for anxiety/mood. Increase Remeron to 30 mg daily at bedtime for insomnia/appetite/mood. Start melatonin 6 mg daily at bedtime for sleep. -thiamine, MVM for etoh use -CIWA protocol with Ativan PRN for ETOH withdrawal -When necessary Ativan and Haldol for agitation/aggression. -NRT - [nicotine patch] -SW on board for discharge planning. Encouraged the patient to participate in milieu. will speak with patient about possibly going to rehab
[2022-09-07] MEDS: MIRTAZAPINE 15 MG TAB PO SCH (20:27)
[2022-09-07] MEDS ORDERED: MELATONIN 3 MG TABLET PO SCH (21:00)
[2022-09-08] MEDS: NICOTINE 14MG/24HR PATCH TRANSDERM SCH (08:28)
[2022-09-08] MEDS: CLINDAMYCIN 150 MG CAP PO SCH ×4 (08:29→20:19)
[2022-09-08] MEDS: MULTIVITAMINS, THERA 1 EACH TAB PO SCH (08:29)
[2022-09-08] MEDS: FOLIC ACID 1 MG TAB PO SCH (08:29)
[2022-09-08] MEDS: SERTRALINE 50 MG TAB PO SCH (08:29)
[2022-09-08] MEDS: THIAMINE 100 MG TAB PO SCH (08:29)
[2022-09-08] MEDS: chlordiazePOXIDE 25 MG CAP PO SCH ×2 (08:31→20:19)
[2022-09-08] MEDS ORDERED: SERTRALINE 50 MG TAB PO STA (10:11)
--- NOTE | 2022-09-08 10:18 | P.PN ---
Progress Note - Text Progress Note Date: 09/08/22 Interval History: Patient was seen in part in group this morning and was directable and agreeable to speak with senior grant writer in the office. Patient claims that he feels a bit better today. He states that he is struggling with constipation at this time. He states that he is trying to go to groups and participate as best as he can. He states he likes the groups with the social worker clinical the bus. He claims that he does not want to go to rehab at this time and will think about it when he is discharged. He is agreeable to try naltrexone. He claims that he did sleep a bit better last night and is agreeable to go up on his melatonin. He also claims that his depression and anxiety have been mildly improving. Appears to be more future oriented today. At this time patient denies any suicidal or homical ideations, intent or plan. Patient denies any auditory, visual hallucinations and denies any paranoia or delusions. Patient denies any side effects from the medications and has been compliant with meds. Mental Status Exam: General Appearance: Patient appears to be thin, a long villatoro, stated age is alert, directable, and attempts to cooperate. Patient appears to have improving hygiene and grooming. Behavior: Patient is seated without any agitated behavior. less constricted. Speech: Patient's speech is fluent and nonpressured. concrete less Mood/Affect: Patient reports their mood is improving mildly, affect is congruent and constricted. Suicidality/Homicidality: Patient denies having any homicidal ideation intent or plan. Denies any suicidal ideations intent or plan Perceptions: Patient denies any visual hallucinations and denies any auditory hallucinations Though content/process: poverty of content, gaurded, logical, improving mildly Memory and concentration: AOX3, grossly intact for the purposes of this session. Judgment and insight: improving mildly IMPRESSIONS: Major depressive disorder, severe, recurrent without psychotic features Alcohol use disorder, currently in withdrawal nicotine dependence cannabis use disorder Plan: -Patient continues to meet criteria for inpatient psychiatric admission for symptom stabilization and safety. Patient has signed adult voluntary form and medication consent and was placed in patient's chart. -Medications: Decrease Librium to 25 mg 2 times a day for alcohol withdrawal. Increased Zoloft 100 mg daily for anxiety/mood. Remeron 30 mg daily at bedtime for insomnia/appetite/mood. Increased melatonin 10 mg daily at bedtime for sleep. added naltrexone po 50 mg daily for etoh cravings. -thiamine, MVM for etoh use -CIWA protocol with Ativan PRN for ETOH withdrawal -When necessary Ativan and Haldol for agitation/aggression. -NRT - nicotine patch -SW on board for discharge planning. Encouraged the patient to participate in milieu. patient states that he is not interested in rehab at this time.
[2022-09-08] MEDS: SENNOSIDES-DOCUSATE SODIUM 1 EACH TAB PO SCH (10:35)
[2022-09-08] MEDS: NALTREXONE HCL 50 MG TAB PO SCH (11:35)
[2022-09-08] MEDS: LORazepam 1 MG TAB PO PRN (20:12)
[2022-09-08] MEDS: MIRTAZAPINE 15 MG TAB PO SCH (20:19)
[2022-09-08] MEDS ORDERED: MELATONIN 5 MG TABLET PO SCH (21:00)
[2022-09-09 06:37] VITALS: BP 128/79; PULSE 61; RESP 17; TEMP 97.6
[2022-09-09] MEDS ORDERED: SERTRALINE 100 MG TAB PO SCH (09:00)
[2022-09-09] MEDS: CLINDAMYCIN 150 MG CAP PO SCH (09:25)
[2022-09-09] MEDS: NICOTINE 14MG/24HR PATCH TRANSDERM SCH (09:25)
[2022-09-09] MEDS: NALTREXONE HCL 50 MG TAB PO SCH (09:26)
[2022-09-09] MEDS: THIAMINE 100 MG TAB PO SCH (09:26)
[2022-09-09] MEDS: SENNOSIDES-DOCUSATE SODIUM 1 EACH TAB PO SCH (09:26)
[2022-09-09] MEDS: FOLIC ACID 1 MG TAB PO SCH (09:26)
[2022-09-09] MEDS: MULTIVITAMINS, THERA 1 EACH TAB PO SCH (09:27)
[2022-09-09] MEDS: chlordiazePOXIDE 25 MG CAP PO SCH (09:27)
--- NOTE | 2022-09-09 10:29 | P.DS ---
Providers Date of admission: 09/05/22 10:04 Expected date of discharge: 09/09/22 Attending physician: David Christiansen MD Consults: 09/05/22 10:06 Consult Physician Routine Consulting Provider: Taina Bradely Consult Reason/Comments: H and P Do you want consulting provider notified?: Yes Primary care physician: Stated None - Discharge Diagnosis(es) (1) Major depressive disorder without psychotic features Current Visit: Yes Status: Acute Priority: High (2) Alcohol use disorder Current Visit: Yes Status: Acute Priority: High (3) Nicotine dependence Current Visit: Yes Status: Acute Priority: Low (4) Cannabis use disorder Current Visit: Yes Status: Acute Priority: Medium Hospital Course: Admission HPI: Admission note was completed by sign writer letterer or painter "Patient is a 31 yo male, has 2 kids, currently lives out of his car, homeless, is single, has 1 kid, currently unemployed. Patient presented to the hospital through the ER reports she was complaining of depression and suicidal thoughts. Patient was apparently intoxicated from etoh. Patient was admitted and signed a voluntary form. Patient apparently had a plan to drive his car into a tree. Patient was last admitted to the psychiatric unit over a year ago. Patient appears to have a constricted affect, poor concentration and poor eye contact. He had a soft tone of voice and appeared to be fairly timid. He states that he has been feeling depressed now for quite some time. He states that he is currently homeless and living out of his car and has financial problems. He states that he was coping somewhat with it however she got a text from his child's mother who states that he is not the actual father. He claims that he got worked up over it and felt hopeless and upset. He claims that he came into the hospital for evaluation instead of killing himself. He states that he has been trying to see his kids however he is not able to see them. He claims that his child's mother is also putting him down a lot. He claims that he stopped taking his medications "months ago" and states that he followed up with a psychiatrist in the area however. Apparently stopped his old medications and put him on new ones they states was not helping him. He claims that he has poor social support. Claims have depression and anxiety. Claims that his sleep has been poor. He states that his appetite has been up and down. He is denying any access to guns or weapons at this time. Patient denies any suicidal or homicidal ideations intent or plan. At this time patient denies any auditory or visual hallucinations. Patient denies any flight of ideas racing thoughts and increased in goal directed behavior. Patient admits to using cigarettes daily, alcohol daily drinking anywhere from a half gallon to a 1 pint of liquor daily. He states that he has had withdrawal symptoms in the past however no DTs. He smokes marijuana daily. He denies any other recreational drug use." Hospital course: Upon admission to the unit patient was directable and agreeable to commence treatment and signed adult voluntary form. Patient got along well with other patients on the unit and followed unit protocol. Patient was compliant with the medications and denied any side effects throughout hospital course. Patient was started on Librium scheduled for alcohol withdrawal and was gradually decreased. Zoloft increased to a dose of 100 mg daily for mood/anxiety. Remeron increased to a dose of 30 mg daily at bedtime for insomnia/appetite/mood. No tone and increased to 10 mg daily at bedtime for sleep, naltrexone by mouth 50 mg daily for alcohol cravings.. Patient spoke of his stressors and engaged in therapy both group and individual. Patient was also seen by medical team for history and physical exam. Throughout the course of the hospitalization patient gradually improved with regards to mood, anxiety, sleep and became more future oriented with improved insight and judgment. On the day of discharge patient d enied any suicidal or homicidal ideations intent or plan denied any auditory or visual hallucinations. Patient endorsed wanting to live for his daughter and his future. The patient denied any access to guns or weapons. Patient denied any paranoia and did not endorse any delusions. Patient does have a significant history of substance abuse and was counseled on abstaining from all substances including alcohol and marijuana. Patient was offered however declined inpatient substance-abuse rehab. Patient was also counseled on the medications and need for regular compliance and was encouraged to follow-up with their outpatient appointment for mental health and also for primary care. Mental status exam: General Appearance: Patient appears to be thin, stated age is alert, pleasant, and cooperative. Patient is in no acute distress and has improved hygiene and grooming Behavior: Patient is calmly seated without any agitated behavior. Speech: Patient's speech is fluent and nonpressured. Mood/Affect: Patient reports their mood is "good", affect is congruent and euthymic. Suicidality/Homicidality: Patient denies having any suicidal or homicidal ideation intent or plan. Perceptions: Patient denies any auditory or visual hallucinations. Though content/process: There is no evidence of any delusional thought content and thought process is linear and goal-directed. more future oriented Memory and concentration: AOX3, grossly intact for the purposes of this session. Can spell "WORLD" backwards correctly. Judgment and insight: chronically poor, however has improved with guarded prognosis Impression: Major depressive disorder, without psychotic features Cannabis use disorder Alcohol use disorder Nicotine dependence Plan: -Continue with discharge today as patient has improved and stabilized psychiatrically and is not currently an imminent threat to himself and/or others. Patient will remain at chronically elevated risk for harm to self and/or others due to his polysubstance abuse. -Continue medications: Librium 25 mg by mouth daily for alcohol withdrawal for 3 more days then discontinue. Zoloft 100 mg daily for anxiety/mood, Remeron 30 mg daily at bedtime for insomnia/appetite/mood, also on 10 mg daily at bedtime for sleep, naltrexone by mouth 50 mg daily for alcohol cravings. -Patient was counseled on the need for medication compliance and appropriate follow-up at mental health and also primary care for medical issues. Patient verbalized understanding and agreed. -Social work to help arrange her patient's discharge today. Social work also to arrange for patients follow up appointments with [facility] for psychiatric care along with follow up with primary care provider. -Patient counseled on abstaining from recreational drugs and marijuana and alcohol. Was informed/educated on the adverse effects on their physical and mental health. Patient verbally agreed and understood. Patient was offered substance abuse treatment however declined at this time. -Patient was instructed to return to the hospital or seek immediate medical care if their psychiatric or medical symptoms do worsen or reoccur. Allergies Allergy/AdvReac Type Severity Reaction Status Date / Time No Known Allergies Allergy Verified 09/05/22 10:56 Laboratory Results WBC 8.8 k/uL (3.8-10.6) 09/06/22 09:30 RBC 4.88 m/uL (4.30-5.90) 09/06/22 09:30 Hgb 15.6 gm/dL (13.0-17.5) 09/06/22 09:30 Hct 44.8 % (39.0-53.0) 09/06/22 09:30 MCV 91.7 fL (80.0-100.0) 09/06/22 09:30 MCH 31.9 pg (25.0-35.0) 09/06/22 09:30 MCHC 34.8 g/dL (31.0-37.0) 09/06/22 09:30 RDW 12.3 % (11.5-15.5) 09/06/22 09:30 Plt Count 360 k/uL (150-450) 09/06/22 09:30 MPV 7.6 09/06/22 09:30 Neutrophils % 66 % 09/06/22 09:30 Lymphocytes % 22 % 09/06/22 09:30 Monocytes % 6 % 09/06/22 09:30 Eosinophils % 3 % 09/06/22 09:30 Basophils % 0 % 09/06/22 09:30 Neutrophils # 5.8 k/uL (1.3-7.7) 09/06/22 09:30 Lymphocytes # 2.0 k/uL (1.0-4.8) 09/06/22 09:30 Monocytes # 0.5 k/uL (0-1.0) 09/06/22 09:30 Eosinophils # 0.3 k/uL (0-0.7) 09/06/22 09:30 Basophils # 0.0 k/uL (0-0.2) 09/06/22 09:30 Sodium 139 mmol/L (137-145) 09/06/22 09:30 Potassium 4.5 mmol/L (3.5-5.1) 09/06/22 09:30 Chloride 100 mmol/L (98-107) 09/06/22 09:30 Carbon Dioxide 29 mmol/L (22-30) 09/06/22 09:30 Anion Gap 10 mmol/L 09/06/22 09:30 BUN 12 mg/dL (9-20) 09/06/22 09:30 Creatinine 0.78 mg/dL (0.66-1.25) 09/06/22 09:30 Est GFR (CKD-EPI)AfAm >90 (>60 ml/min/1.73 sqM) 09/06/22 09:30 Est GFR (CKD-EPI)NonAf >90 (>60 ml/min/1.73 sqM) 09/06/22 09:30 Glucose 106 mg/dL (74-99) H 09/06/22 09:[address] Glu mg/dL 107 09/06/22 09:30 Hemoglobin A1c 5.3 % (0.0-6.0) 09/06/22 09:30 Calcium 9.1 mg/dL (8.4-10.2) 09/06/22 09:30 Total Bilirubin 0.6 mg/dL (0.2-1.3) 09/06/22:30 AST 32 U/L (17-59) 09/06/22:30 ALT 33 U/L (4-49) 09/06/22 09:30 Alkaline Phosphatase 73 U/L (38-126) 09/06/22 09:30 Total Protein 7.4 g/dL (6.3-8.2) 09/06/22 09:30 Albumin 4.4 g/dL (3.5-5.0) 09/06/22 09:30 Triglycerides 179.00 mg/dL (0.00-149.00) H 09/06/22 09:30 Cholesterol 213.00 mg/dL (0.00-200.00) H 09/06/22 09:30 LDL Cholesterol, Calc 135.0 mg/dL (0.0-131.0) H 09/06/22 09:30 VLDL Cholesterol, Calc 35.80 mg/dL (5.00-40.00) 09/06/22 09:30 HDL Cholesterol 42.20 mg/dL (40.00-60.00) 09/06/22 09:30 Cholesterol/HDL Ratio 5.05 Ratio 09/06/22 09: TSH 1.890 mIU/L (0.465-4.680) 09/06/22 09:30 Coronavirus (PCR) Not Detected (Not Detectd) 09/05/22 09:22 Vital Signs Temp 97.6 F 09/09/22 04:30 Pulse 61 09/09/22 04:30 Resp 17 09/09/22 04:30 BP 128/79 09/09/22 04:30 Pulse Ox 98 09/09/22 04:30 FiO2 Patient Condition at Discharge: Stable Plan - Discharge Summary Discharge Rx Participant: No New Discharge Prescriptions: New Nicotine 14Mg/24Hr Patch [Habitrol] 1 patch TRANSDERM DAILY 14 Days patch chlordiazePOXIDE HCl [Librium] 25 mg PO DAILY 3 Days #3 cap Naltrexone HCl [Revia] 50 mg PO DAILY 30 Days tab Sennosides-Docusate Sodium [Senokot-S] 1 each PO DAILY 30 Days tab Sertraline [Zoloft] 100 mg PO DAILY 30 Days tab Clindamycin [Cleocin] 300 mg PO QID 4 Days cap Folic Acid 1 mg PO DAILY 30 Days tab Hydrocortisone Cream [Hydrocortisone 1% Cream] 1 applic TOPICAL BID PRN #1 each PRN Reason: Skin Irritation Melatonin 10 mg PO HS 30 Days tab Multivitamins, Thera [Multivitamin (formulary)] 1 each PO DAILY 30 Days tab Mirtazapine [Remeron] 30 mg PO HS 30 Days tab Thiamine [Vitamin B-1] 100 mg PO DAILY 30 Days tab Discharge Medication List Clindamycin [Cleocin] 300 mg PO QID 4 Days cap 09/09/22 [Rx] Folic Acid 1 mg PO DAILY 30 Days tab 09/09/22 [Rx] Hydrocortisone Cream [Hydrocortisone 1% Cream] 1 applic TOPICAL BID PRN #1 each 09/09/22 [Rx] Melatonin 10 mg PO HS 30 Days tab 09/09/22 [Rx] Mirtazapine [Remeron] 30 mg PO HS 30 Days tab 09/09/22 [Rx] Multivitamins, Thera [Multivitamin (formulary)] 1 each PO DAILY 30 Days tab 09/09/22 [Rx] Naltrexone HCl [Revia] 50 mg PO DAILY 30 Days tab 09/09/22 [Rx] Nicotine 14Mg/24Hr Patch [Habitrol] 1 patch TRANSDERM DAILY 14 Days patch 09/09/22 [Rx] Sennosides-Docusate Sodium [Senokot-S] 1 each PO DAILY 30 Days tab 09/09/22 [Rx] Sertraline [Zoloft] 100 mg PO DAILY 30 Days tab 09/09/22 [Rx] Thiamine [Vitamin B-1] 100 mg PO DAILY 30 Days tab 09/09/22 [Rx] chlordiazePOXIDE HCl [Librium] 25 mg PO DAILY 3 Days #3 cap 09/09/22 [Rx] Follow up Appointment(s)/Referral(s): Christie NUÑEZ [Other] - 09/14/22 9:00 am (With Taina ) [facility] [NON-STAFF] - 1 Week Patient Instructions/Handouts: How to Stop Smoking (DC), Depression (DC), Polysubstance Abuse (ED) Activity/Diet/Wound Care/Special Instructions: Avoid the use of street drugs and alcohol. Take all prescriptions as prescribed. When you are in need of refills on your medications, please contact your medical provider and/or outpatient psychiatrist to have this done. Please go to scheduled outpatient appointment for aftercare treatment. If symptoms return or become worse, call the crisis line at and/or go to the nearest emergency room for evaluation. Discharge Disposition: HOME SELF-CARE
== END 2022-09-09 12:25 | disposition home or self-care (01) | DRG 881 ==
LOC: EC 00:17 → 3MHU 10:04
PROVIDERS: ADMIT Psychiatry & Neurology Psychiatry; ATTEND Psychiatry & Neurology Psychiatry
DX: F32.9 Major depressive disorder, single episode, unspecified (principal); R45.851 Suicidal ideations; F10.129 Alcohol abuse with intoxication, unspecified; F12.90 Cannabis use, unspecified, uncomplicated; F17.210 Nicotine dependence, cigarettes, uncomplicated; F31.9 Bipolar disorder, unspecified; F43.10 Post-traumatic stress disorder, unspecified; F90.9 Attention-deficit hyperactivity disorder, unspecified type; G47.00 Insomnia, unspecified; K59.00 Constipation, unspecified; Z56.0 Unemployment, unspecified; Z59.00 Homelessness unspecified; Z59.86 Financial insecurity; Z79.899 Other long term (current) drug therapy; Z20.822 Contact with and (suspected) exposure to COVID-19
CPT/HCPCS: 80053; 80061; 82075; 83036; 84443; 85025; 87635; 99285